=== PATIENT | male | born 1955 | race Caucasian/White ===

== ENCOUNTER 2017-11-09 10:30 | Outpatient (RCR) | payer BC | END 2017-11-09 12:14 | disposition still patient (30) | LOC: PT 10:30 | DX: M25.551 Pain in right hip (principal); M46.92 Unspecified inflammatory spondylopathy, cervical region; W55.32XD Struck by other hoof stock, subsequent encounter; Y93.K9 Activity, other involving animal care ==

== ENCOUNTER 2021-02-09 11:00 | Outpatient (RCR) | payer MEDICARE, BC | END 2021-05-10 | disposition home or self-care (01) | LOC: PT | DX: M25.511 Pain in right shoulder (principal); G89.29 Other chronic pain ==